=== PATIENT | male | born 1985 | race African-American/Black ===

== ENCOUNTER 2022-09-19 19:06 | Emergency (ER) | payer OTHER, SELFPAY ==
[2022-09-19 19:23] VITALS: BP 132/74; PULSE 72; RESP 20; TEMP 36.6; O2SAT 99
--- NOTE | 2022-09-19 19:37 | ED.WOUNDLAC ---
HPI - Wound/Laceration General Chief Complaint: Wound/Laceration Stated Complaint: cut left 1st digit toe Time Seen by Provider: 09/19/22 19:22 Source: patient Mode of arrival: ambulatory Limitations: no limitations History of Present Illness HPI narrative: Patient presents today complaining of a laceration to his left great toe. He was washing dishes and had a knife sitting on the counter when the knife fell off and fell onto his toe just prior to arrival. States it bled a lot and that is why he wanted to come in for evaluation. He is not on a blood thinner or aspirin. Currently rates his pain 06/17. He is not up-to-date on his tetanus vaccine. Related Data Home Medications Medication Instructions Recorded Confirmed amlodipine 5 mg tablet 5 mg PO DAILY 09/19/22 09/19/22 Allergies Allergy/AdvReac Type Severity Reaction Status Date / Time No Known Allergies Allergy Verified 09/19/22 19:18 Review of Systems Review of Systems: CONSTITUTIONAL: Denies body aches, fever, chills, or sweats. EYES: Denies visual changes, redness, or discharge. ENT: Denies rhinorrhea, congestion, sore throat, or otalgia. CARDIOVASCULAR: Denies chest pain, palpitations, or edema. RESPIRATORY: Denies cough or dyspnea. GASTROINTESTINAL: Denies abdominal pain, nausea, vomiting, or diarrhea. GENITOURINARY: Denies dysuria or hematuria. SKIN: + laceration to left great toe MUSCULOSKELETAL: Denies back pain, joint pain, or myalgia. NEUROLOGIC: Denies headache, numbness, tingling, or weakness. PSYCH: Denies depression or anxiety. PMFSH Comments At time of signature, I have reviewed and agree with nursing past medical, surgical, social and family history unless otherwise noted. Please see nursing chart for further information. There is no relevant family history pertinent to the presenting complaint Exam Narrative: GENERAL: Well-appearing, well-nourished, and in no acute distress. HEAD: Normocephalic, atraumatic. EYES: EOMI. No redness or drainage. Conjunctivae normal. ENT: Mucous membranes pink and moist. NECK: Normal AROM. CHEST: No respiratory distress. EXTREMITIES: Normal range of motion. No edema. SKIN: Warm, dry, no rash. Capillary refill normal. Normal skin turgor. 1.5 cm superficial linear laceration just proximal to the toenail of the left great toe. No active bleeding. Distal sensation intact. Capillary refill normal. Full range of motion of the toe. NEURO: No focal deficits. Alert and oriented x3. Gait steady. PSYCH: Normal affect. No signs of depression or anxiety. Course Course Level of Care: Express Care Visit Vital Signs Vital signs: Vital Signs Temperature 97.8 F 09/19/22 19:23 Pulse Rate 72 09/19/22 19:23 Respiratory Rate 20 09/19/22 19:23 Blood Pressure 132/74 09/19/22 19:23 Pulse Oximetry 99 09/19/22 19:23 Oxygen Delivery Room Air 09/19/22 19:23 Temperature 97.8 F 09/19/22 19:23 Pulse Rate 72 09/19/22 19:23 Respiratory Rate 20 09/19/22 19:23 Blood Pressure 132/74 09/19/22 19:23 Pulse Oximetry 99 09/19/22 19:23 Oxygen Delivery Room Air 09/19/22 19:23 Reviewed. Pt has been instructed to follow up with his PCP regarding his elevated blood pressure today. Procedures Laceration Laceration 1: Date: 09/19/22 Time: 19:40 Site: lower extremity Side (If applicable): left Size (cm): 1.5 Description: linear Depth: simple, single layer (Superficial) Local Anesthetic: none Pre-repair: wound explored and irrigated ====== Skin Level ====== Skin layer closed with: dermabond ====== Subcutaneous Layer ====== ====== Muscle Layer ====== ====== Tendon Layer ====== Dressing: Dressed with nonadherent dressing. Patient tolerated procedure well. MDM - Wound/Laceration MDM Narrative Medical decision making narrative: Wound closed with Dermabond. Tetanus shot updated. No pre
[2022-09-19] MEDS: TETANUS,DIPHTHERIA,AC PERTUSSIS ADULT (0.5 ML) BOOSTRIX IM (19:39)
== END 2022-09-19 19:55 | disposition home or self-care (01) ==
PROVIDERS: Emergency Provider Nurse Practitioner; PCP Nurse Practitioner Family
DX: S91.112A Laceration without foreign body of left great toe without damage to nail, initial encounter (principal); Z23 Encounter for immunization; W26.0XXA Contact with knife, initial encounter
CPT/HCPCS: 12001; 90471; 90715; 99212; G0463